=== PATIENT | female | born 1960 | race Caucasian/White ===

== ENCOUNTER 2018-06-09 10:15 | Day surgery (SDC) | payer OTHER ==
[2018-06-09] MEDS ORDERED: FENTAnyl 50 MCG/ML VIAL ×2 (12:01→12:02)
[2018-06-09] MEDS ORDERED: MIDAZOLAM 1 MG/ML 2 ML INJ ×3 (12:01→12:02)
== END 2018-06-09 12:14 | disposition home or self-care (01) ==
LOC: GIL 10:15
DX: Z12.11 Encounter for screening for malignant neoplasm of colon (principal); K29.50 Unspecified chronic gastritis without bleeding; B96.81 Helicobacter pylori [H. pylori] as the cause of diseases classified elsewhere; K21.9 Gastro-esophageal reflux disease without esophagitis; K57.30 Diverticulosis of large intestine without perforation or abscess without bleeding; K64.8 Other hemorrhoids
CPT/HCPCS: 43239; 88305; 88312